=== PATIENT | male | born 1950 | race Hispanic/Latino ===

== ENCOUNTER 2021-12-17 11:33 | Emergency (ER) | payer MEDICARE, OTHER, SELFPAY ==
[2021-12-17 11:34] VITALS: BP 154/92; PULSE 61; RESP 16; TEMP 36.4; O2SAT 96; BMI 33.0
--- NOTE | 2021-12-17 12:01 | CT_ITS ---
STUDY: CT ABDOMEN AND PELVIS WITH CONTRAST REASON FOR EXAM: Male, 71 years old. Diffuse abdominal pain for 2 days. Constipation. RADIATION DOSAGE (If Supplied By Facility): CTDIvol = ( 16.33 ) mGy, DLP = ( 1158.62 ) mGycm TECHNIQUE: Transaxial images were obtained from the dome of the diaphragm to the symphysis pubis without oral contrast. IV 100mL Isovue-300 was administered. Sagittal and coronal images were reconstructed. Individualized dose optimization techniques were used for this CT. COMPARISON: None. FINDINGS: Mild increased linear markings at the lung bases more prominent on the right side suggestive of bibasilar atelectasis coronary artery calcification. There is decreased attenuation of the liver consistent with steatosis. Normal gallbladder and extrahepatic biliary system. Normal spleen. Normal pancreas. Normal bilateral adrenal glands. There is a 4.6 x 4.8 cm cyst in the upper pole of the right kidney. Mild degree of right hydronephrosis and right hydroureter due to a 3 mm calculus in the proximal portion of the right ureter. There is evidence of right perinephric stranding. Normal left kidney. Normal visualized stomach. Normal small intestine. Normal colon. The appendix is visualized and appears normal. Normal abdominal aorta. Normal inferior vena cava. Normal retroperitoneum. Diffuse bladder wall thickening although the bladder is not completely distended. Prostatic enlargement. The prostate measures 5.3 cm x 4.4 cm. Calcifications are seen within the prostate. There is a small umbilical hernia containing fat. Small left inguinal hernia containing fat. There are diffuse degenerative changes of the visualized lumbar spine. CT/Abdomen/Pelvis W IV Cont ONLY IMPRESSION: Mild degree of linear atelectasis at the lung bases. Diffuse fatty infiltration of the liver. Right renal cyst. Right hydronephrosis and proximal right hydroureter due to a 3 mm calculus in the proximal portion of the right ureter. Right perinephric stranding. Small umbilical hernia and left inguinal hernia. Prostatic enlargement with indentation of the bladder base. Diffuse bladder wall thickening. Electronically Signed: Isaac Warren MD at 13:38 EDT ,
--- NOTE | 2021-12-17 12:02 | ED.VIS.GI ---
HPI HPI - GI History of Present Illness Chief Complaint: Abd Pain Informant: patient Abdominal Pain/Flank Pain Onset: Days Context: Gradual Onset Timing: Intermittent Quality: Aching Current Severity: Mild Maximum Severity: Moderate Worsened by: Nothing Relieved by: Nothing Nausea/Vomiting/Emesis GI Symptom: Positive for Nausea Onset: Today Severity: Mild Diarrhea/Melena/Hematochezia GI Symptom: Negative for Diarrhea, Melena and Hematochezia Associated Symptoms Associated Symptoms: Negative for Dysuria, Frequency, Hematuria and Urgency Narrative Narrative: 71-year-old male history of kidney stones, diverticulosis and prior appendectomy. States he had abdominal pain develop yesterday. Right-sided. Now is diffuse. He stated initially when it occurred he took Naprosyn seem to improve he ate dinner last night and the pain worsened. Associated nausea no vomiting or diarrhea since then had a bowel movement since Tuesday. No melena. No fever or chills. No dysuria. No trouble urinating. No abdominal trauma. No fever. Prior similar symptoms: No Recent Illness/Hospitalization: No PFSH PFSH Home Medications oxycodone-acetaminophen [Percocet] 1 tab PO Q4H PRN 4 Days #14 tab 12/17/21 [Rx Last Taken Unknown] Allergy/AdvReac Type Severity Reaction Status Date / Time No Known Allergies Allergy Verified 12/17/21 11:34 Social History Smoking Status: Never smoker ROS ROS ED ROS Narrative Abdominal pain nausea. Review of Systems ROS Unobtainable: Denies due to encephalopathy Constitutional Constitutional ED: Denies fever(s) ENT ENT ED: Denies ear pain Cardiovascular Cardiovascular: Denies chest pain Respiratory/Chest Respiratory/Chest: Denies dyspnea Gastrointestinal Gastrointestinal: Reports abdominal pain, constipation and nausea; Denies diarrhea or vomiting Genitourinary Genitourinary ED: Denies dysuria Musculoskeletal Musculoskeletal: Denies myalgias Integumentary Denies rash Neurologic Neurologic: Denies headache(s) Psychiatric Psychiatric: Denies depression Endocrine Endocrinology: Denies polyuria Hematologic/Lymphatic Hematologic/Lymphatic: Denies easy bruising Allergic/Immunologic Allergic/Immunologic ED: Denies urticaria EXAM Physical Exam Narrative Exam Narrative: 71-year-old male no acute distress. Vital signs stable afebrile. H EENT exam unremarkable. Moist remembers. Lungs clear to auscultation. Heart regular rhythm no murmur. Abdomen soft diffusely tender no peritoneal signs. No pulsatile mass. No obstruction. No hernia. Follow-up normal bowel sounds. Mildly tender in all quadrants. No masses appreciated. Moving all 4 extremities. Nontender no edema. Back nontender. Neurologically is awake and alert. Const Vital Signs: 12/17/21 11:34 Temperature 97.6 F L Temperature Source Temporal Pulse Rate 61 Respiratory Rate 16 Blood Pressure 154/92 H Blood Pressure Mean 112 Pulse Ox 96 Oxygen Delivery Method Room Air Positive well nourished, well developed and obese; Negative for cachectic, contractures or unkempt General Appearance ED: well developed and NAD; Negative for unkempt, cachectic, contractures or pallor Nutritional Appearance: obese; Negative for cachectic HEENT Reports moist mucous membranes normocephalic and atraumatic Eyes PERRL and EOMs intact bilaterally General Eye ED: Negative for pale conjunctiva or scleral icterus Neck no lymphadenopathy, supple and no JVD General: Negative for tenderness Resp normal respiratory effort and clear to auscultation bilaterally Auscultation: Negative for rales, rhonchi or wheezes Cardio regular rate, regular rhythm, S1 normal heart sound, S2 normal heart sound and no murmurs GI non-distended and no masses; Negative for non-tender Auscultation: normoactive bowel sounds Palpation: soft and tender; Negative for guarding, rigid or rebound tenderness present Back/Spine no CVA tenderness General Back: Negative for CVA tenderness Cervical Spine: Negative for cervical spine tenderness Thoracic Spine / Upper Back: Negative for thoracic spinal tenderness Extremity full ROM General Extremety ED: Negative for edema or tenderness General Extremity: Negative for edema Neuro moves all extremities Sensorium / Orientation: alert, oriented to person, oriented to place and oriented to time; Negative for orientation impaired, confused, lethargic or stuporous Motor Exam: strength 5/5 throughout Psych mental status grossly normal and thought process normal Appearance: Negative for unkempt Attitude: No agitated Mood & Affect: Negative for depressed or tearful Skin no wounds General Skin Exam: Negative for jaundice or pallor Lesions: no lesions Rashes: no rashes MDM MDM MDM Narrative Medical decision making narrative: 71-year-old male with diffuse abdominal pain. CAT scan labs are pending. IV fluids, Zofran for nausea and morphine for pain. Differential would include gallbladder disease, pancreatitis, constipation, diverticulitis versus other etiologies. Repeat exam patient is doing well. He is pain-free after second dose of morphine. He and his are comfortable him being discharged home. We did discuss all his test results. He will follow up with his urologist as needed. Percocet for pain. Lab Data Attestation: I reviewed the patient's lab results. Lab results narrative: CBC shows a white count of 10. H&H 14 and 43. Electrolytes unremarkable gap of 5 BUN 21 creatinine 1.45. Liver enzymes are normal. Lipase is normal at 249. UA is negative. CAT scan consistent with a right proximal ureteral stone with hydronephrosis. No labs available for comparison. Labs: Laboratory Results - last 24 hr 12/17/21 12/17/21 12/17/21 12:10 12:10 13:08 WBC 10.1 RBC 4.73 Hgb 14.5 Hct 43.5 MCV 92.0 MCH 30.7 MCHC 33.3 RDW Std Deviation 47.6 H RDW Coeff of Nahed 13.9 Plt Count 181 MPV 9.4 Immature Gran % (Auto) 0.400 Neut % (Auto) 78.2 H Lymph % (Auto) 10.8 L [place] % (Auto) 10.3 H Eos % (Auto) 0.1 Baso % (Auto) 0.2 Absolute Neuts (auto) 7.9 H Absolute Lymphs (auto) 1.09 Nucleated RBC % 0 Sodium 140 Potassium 3.9 Chloride 108 H Carbon Dioxide 27.0 Anion Gap 5 BUN 21 H Creatinine 1.45 H Estim Creat Clear Calc 49.65 Est GFR (MDRD) Af Amer 62 Est GFR (MDRD) Non-Af 51 L BUN/Creatinine Ratio 14.5 Glucose 112 H Calcium 9.3 Total Bilirubin 0.60 AST 22 ALT 44 Alkaline Phosphatase 65 Total Protein 7.0 Albumin 3.9 Globulin 3.1 Albumin/Globulin Ratio 1.3 Lipase 249 Urine Color Yellow Urine Clarity Clear Urine pH 5.0 Ur Specific [place] 1.025 Urine Protein Negative Urine Glucose (UA) Normal Urine Ketones 5 H Urine Occult Blood Negative Urine Nitrite Negative Urine Bilirubin Negative Urine Urobilinogen Normal Ur Leukocyte Esterase Negative Urine RBC 0 SEEN Urine WBC 0 SEEN Ur Squamous Epith Cells 0 SEEN Urine Bacteria 0 SEEN Urine Mucus 0 SEEN Radiography Diagnostic Testing: Clinical Impression(s) from Imaging Studies Abdomen/Pelvis CT 12/17/21 12:01 IMPRESSION: Mild degree of linear atelectasis at the lung bases. Diffuse fatty infiltration of the liver. Right renal cyst. Right hydronephrosis and proximal right hydroureter due to a 3 mm calculus in the proximal portion of the right ureter. Right perinephric stranding. Small umbilical hernia and left inguinal hernia. Prostatic enlargement with indentation of the bladder base. Diffuse bladder wall thickening. Electronically Signed: Isaac Warren MD at 13:38 EDT , Discharge Plan Triage Chief Complaint: Abd Pain ED Provider: Zuhair Sanford Dx/Rx/DC Orders Clinical Impression: Kidney stone on right side, Abdominal pain Instructions: ED Kidney Stone w/ Colic Prescriptions: New oxycodone-acetaminophen [Percocet] 5-325 mg tablet 1 tab PO Q4H PRN (Reason: pain) 4 Days Qty: 14 RF: 0 Primary Care Provider: Shanti Milner Referrals: Ty Navarrete MD [STAFF PHYSICIAN] - As Needed Shanti Milner PA-C [Primary Care Provider] - As Needed Activity Restrictions/Additional Instructions: Plenty of fluids and rest. Percocet for pain as needed. Make sure you are taking plenty of fluids and fiber and even possibly a stool softener as needed because the Percocet may cause constipation. Strain your urine for past stone. Follow-up with your urologist if you are not improving. Return to the emergency department if fever or intractable vomiting or feeling a lot worse. Disposition Disposition: Home, Self Care
[2021-12-17] MEDS: 0.9% Normal Saline 1,000 ML 1000 ML IV (12:14)
[2021-12-17] MEDS: Ondansetron 4 MG/2 ML Vial IV (12:14)
[2021-12-17] MEDS: Morphine 4 MG/ML Syringe 6 MG IV (12:15)
[2021-12-17 12:33] LABS: Absolute Lymphocyte Count 1.09 X10^3/uL (0.83-4.51); Absolute Neutrophil Count 7.9 X10^3/uL (2.0-7.7); Basophil# 0.02 X10^3/uL; Basophil% 0.2 % (0-1); Eosinophil# 0.01 X10^3/uL; Eosinophils% 0.1 % (0-5); Hematocrit 43.5 % (40-54); Hemoglobin 14.5 g/dL (13.0-16.5); Lymphocyte # 1.09 X10^3/ul (0.83-4.51); Lymphocyte % 10.8 % (19-41); Mean Corp Hgb Conc 33.3 g/dL (32-36); Mean Corpuscular Hgb 30.7 pg (27.0-32.0); Mean Platelet Vol. 9.4 fl (6.2-12.0); Monocyte# 1.04 X10^3/uL; Monocyte% 10.3 % (0-10); NRBC Flagged by Analyzer 0 % (0-5); Neutrophil # 7.85 X10^3/uL (2.7-7.7); Neutrophil % 78.2 % (47-70); Platelet Count 181 K/mm3 (150-450); RBC Distribution Width CV 13.9 % (11.6-14.6); RBC Distribution Width SD 47.6 fl (35.1-43.9); Red Blood Count 4.73 M/mm3 (4.6-6.2); White Blood Count 10.1 K/mm3 (4.4-11.0)
[2021-12-17 12:56] LABS: ALB/GLOB Ratio 1.3 RATIO (0.9-2.4); AST(SGOT) 22 U/L (15-37); Alanine Aminotransfer ALT/SGPT 44 U/L (16-61); Albumin, Serum 3.9 g/dL (3.2-5.0); Alkaline Phosphatase 65 U/L (45-117); Anion Gap 5 (5-15); BUN 21 mg/dL (7-18); BUN/Creat Ratio 14.5 RATIO (10-20); Calcium,Total 9.3 mg/dL (8.5-10.1); Chloride 108 mmol/L (98-107); Creatinine, Serum 1.45 mg/dL (0.70-1.30); EST Glomerular Filtration Rate 51 mL/min (>60); Est Glom Filt Rate - Afr Amer 62 mL/min (>60); Estimated Creatinine Clearance 49.65 ml/min; Globulin 3.1 g/dL (2.2-4.2); Glucose 112 mg/dL (74-106); Lipase 249 U/L (73-393); Potassium 3.9 mmol/L (3.5-5.1); Sodium Level 140 mmol/L (136-145)
[2021-12-17 13:18] LABS: Bacteria 0 SEEN /hpf (None Seen); Mucous, Urine 0 SEEN /hpf (<or=2+); Red Blood Cells-Urine 0 SEEN /hpf (0-5); Squamous Epithelial Cells - UA 0 SEEN /hpf (0-5); White Blood Cells 0 SEEN /hpf (0-5)
[2021-12-17 13:21] LABS: Color, Urine Yellow (Yellow); Glucose, Dipstick Normal (Normal); Ketone-Dipstick 5 mg/dl (Negative); Leukocyte Esterase-Dipstick Negative /ul (Negative); Nitrite-Dipstick Negative (Negative); Occult Blood-Urine Negative /ul (Negative); Protein-Dipstick Negative (Negative); Specific Gravity, Urine 1.025 (1.002-1.030); Urine Bilirubin Dipstick Negative (Negative); Urine Clarity Clear (Clear); Urine Urobilinogen Normal (Normal)
[2021-12-17] MEDS: morphine 8 MG/ML Syringe 6 MG IV (13:31)
[2021-12-17 14:38] VITALS: BP 131/85; PULSE 60; RESP 18; O2SAT 95
== END 2021-12-17 14:38 | disposition home or self-care (01) ==
PROVIDERS: Emergency Provider Emergency Medicine; PCP Family Medicine; Visit Provider Emergency Medicine
DX: N20.0 Calculus of kidney (principal); R10.9 Unspecified abdominal pain; E66.9 Obesity, unspecified
CPT/HCPCS: 74177; 80053; 81001; 83690; 85025; 96361; 96374; 96375; 96376; 99284; Q9967; A4216; J2405

== ENCOUNTER 2021-12-22 16:45 | Observation (INO) | payer MEDICARE, OTHER, SELFPAY ==
--- NOTE | 2021-12-22 16:40 | HP.PCM_ITS ---
History and Physical NAVA VAIL .0 : 1950, 71 year old Male SSN: [id number] PRIMARY CARE: PARISH BEASLEY M.D. REFERRING: PARISH BEASLEY M.D. PROVIDER: Terrence Navarrete M.D. LOCATION: [facility] - [address] [place] [id number] CC/HPI: 71 yo male severe pain + nause and vomiting some chills, low grade fevers pain is not under control ALLERGIES: None MEDICATIONS: Allopurinol 100 mg tablet Proscar 5 mg tablet 1 tablet PO Daily Uroxatral 10 mg tablet, extended release 24 hr 1 tablet PO Q HS Notes: No COVID vaccine PAST SURGICAL HISTORY: Appendectomy Carpal Tunnel Surgery, Right Colonoscopy Knee Surgery (Unspecified) [facility] Notes: Kidney surgery, not specified PAST MEDICAL HISTORY: Benign prostatic hyperplasia with lower urinary tract symptoms - 11/02/2021, - 04/30/2021, - 10/02/2020 Elevated prostate specific antigen [PSA] - 11/02/2021, - 04/30/2021, - 10/02/2020, - 07/17/2020 Cyst of kidney, acquired - 10/02/2020 Unspecified abdominal pain - 09/01/2020 Epididymitis - 07/17/2020 Benign prostatic hyperplasia without lower urinary tract symptoms Dvtrcli of intest, part unsp, w/o perf or abscess w/o bleed Hyperuricemia w/o signs of inflam arthrit and tophaceous dis Obesity, unspecified Obstructive sleep apnea (adult) (pediatric) Personal history of urinary calculi Retention of urine, unspecified Unspecified hearing loss, unspecified ear Immunizations: None FAMILY HISTORY: Cancer - Mother, Sister SOCIAL HISTORY: Marital Status: Preferred Language: Pashto; Race: White Current Smoking Status: Patient does not smoke anymore. Tobacco Use Assessment Completed: Used Tobacco in last 30 days? Smoking cessation counseling was provided. Does not use smokeless tobacco. Social Drinker. Does not use drugs. Has not had a blood transfusion. REVIEW OF SYSTEMS: Constitutional: Patient reports fever and chills. Patient denies weight loss and weight gain. Genitourinary: Patient reports get up at night to void. Patient denies frequent urination, urinary retention, leakage of urine, painful urination, blood in the urine, frequent uti's, history of stones, difficulty starting stream, weak stream/scanty, and bedwetting. Notes: Updated from previous visit 11/02/2021 with review from patient as noted above. VITAL SIGNS: 12/22/2021 03:59 PM Weight 230 lb / 104.33 kg PHYSICAL EXAM: Constitutional: Well-nourished. No physical deformities. Normally developed. Good grooming. Neck: Neck symmetrical, not swollen. Normal tracheal position. Respiratory: No labored breathing, no use of accessory muscles. Cardiovascular: Normal temperature, normal extremity pulses, no swelling, no varicosities. Lymphatic: No enlargement of neck, axillae, groin. Skin: No paleness, no jaundice, no cyanosis. No lesion, no ulcer, no rash. Neurologic / Psychiatric: Oriented to time, oriented to place, oriented to person. No depression, no anxiety, no agitation. Gastrointestinal: No mass, no tenderness, no rigidity, non obese abdomen. Eyes: Normal conjunctivae. Normal eyelids. Ears, Nose, Mouth, and Throat: Left ear no scars, no lesions, no masses. Right ear no scars, no lesions, no masses. Nose no scars, no lesions, no masses. Normal hearing. Normal lips. Musculoskeletal: Normal gait and station of head and neck. Complexity of Data: Records Review: Previous Patient Records Urine Test Review: Urinalysis X-Ray Review: C.T. Abdomen/Pelvis: Reviewed Films. Reviewed Report. Discussed With Patient. 11/02/21 04/30/21 10/01/20 08/29/20 06/11/20 PSA Total PSA 10.77 8.87 7.78 9.87 6.8 PROCEDURES: Urinalysis - 42127 Dipstick Dipstick Cont'd Specimen: Voided Blood: about 250 Appearance: Clear pH: 5.0 Color: Yellow Protein: Neg Glucose: Normal Urobilinogen: Neg Bilirubin: Neg Nitrites: Neg Ketones: Neg Leukocyte Esterase: Neg ASSESSMENT: ICD-10 Details 1 Calculus of ureter - N20.1 Right, Undiagnosed New Problem PLAN: Document Letter(s): Created for Patient: Clinical Summary Notes: admit to hospital plan for intervention tomorrow with cysto stent possible laser. has obstructing kidney stone. Assessment & Plan Assessment/Plan (1) Kidney stone on right side:
[2021-12-22 17:41] VITALS: BMI 32.4
[2021-12-22 17:45] VITALS: BP 159/89; PULSE 51; RESP 16; TEMP 37.4; O2SAT 96
[2021-12-22] MEDS: Ondansetron 4 MG/2 ML Vial IV (18:11)
[2021-12-22] MEDS: Morphine 2 MG/ML Syringe IV ×2 (18:11→23:23)
[2021-12-22] MEDS: 0.9% Normal Saline 1,000 ML 100 ML IV (18:15)
[2021-12-22] MEDS: Cefazolin 1 GM/50 ML BAG IV (18:56)
[2021-12-22] MEDS: 0.9% Saline Lock 10 ML Syringe IV (18:56)
[2021-12-22] MEDS: Ketorolac 15 MG/ML Vial IV (18:57)
[2021-12-22] MEDS: Tamsulosin HCl 0.4 MG Capsule PO (21:09)
[2021-12-22 22:24] VITALS: PULSE 59
[2021-12-22 23:45] VITALS: BP 133/74; PULSE 59; RESP 16; TEMP 37.3; O2SAT 98
[2021-12-23] VITALS (10 sets, daily range): BP systolic 116–159; BP diastolic 75–97; PULSE 45–67; RESP 14–18; TEMP 36.2–38.1; O2SAT 95–98; BMI 32.4
[2021-12-23] MEDS: Ketorolac 15 MG/ML Vial IV (00:57)
[2021-12-23] MEDS: 0.9% Normal Saline 1,000 ML 100 ML IV (05:01)
[2021-12-23] MEDS: Cefazolin 1 GM/50 ML BAG IV (05:17)
[2021-12-23 05:25] LABS: Absolute Neutrophil Count 5.1 X10^3/uL (2.0-7.7); Basophil# 0.03 X10^3/uL; Basophil% 0.3 % (0-1); Eosinophil# 0.32 X10^3/uL; Eosinophils% 3.7 % (0-5); Hematocrit 42.8 % (40-54); Hemoglobin 14.9 g/dL (13.0-16.5); Lymphocyte % 23.3 % (19-41); Mean Corp Hgb Conc 34.8 g/dL (32-36); Mean Corpuscular Hgb 31.6 pg (27.0-32.0); Mean Corpuscular Volume 90.9 fL (80-94); Mean Platelet Vol. 9.1 fl (6.2-12.0); Monocyte# 1.16 X10^3/uL; Monocyte% 13.5 % (0-10); NRBC Flagged by Analyzer 0 % (0-5); Neutrophil # 5.06 X10^3/uL (2.7-7.7); Neutrophil % 58.9 % (47-70); Platelet Count 177 K/mm3 (150-450); RBC Distribution Width CV 13.5 % (11.6-14.6); RBC Distribution Width SD 45.2 fl (35.1-43.9); Red Blood Count 4.71 M/mm3 (4.6-6.2); White Blood Count 8.6 K/mm3 (4.4-11.0)
[2021-12-23 08:04] LABS: Anion Gap 2 (5-15); BUN 17 mg/dL (7-18); BUN/Creat Ratio 10.2 RATIO (10-20); Chloride 107 mmol/L (98-107); Creatinine, Serum 1.67 mg/dL (0.70-1.30); EST Glomerular Filtration Rate 44 mL/min (>60); Est Glom Filt Rate - Afr Amer 53 mL/min (>60); Estimated Creatinine Clearance 43.11 ml/min; Glucose 108 mg/dL (74-106); Potassium 4.4 mmol/L (3.5-5.1); Sodium Level 139 mmol/L (136-145)
--- NOTE | 2021-12-23 12:07 | CASEMGMT ---
JUAQUIN CM in to discuss PERDUE form with patient. RN CM explained PERDUE form, patient voiced understanding. Pt signed form and filed in chart. Pt provided with a copy of signed PERDUE form. Patient had no further questions or concerns at this time.
--- NOTE | 2021-12-23 12:31 | NURSING ---
pt transported off unit via bed at this time for surgery
--- NOTE | 2021-12-23 14:29 | PCM.DC ---
Discharge Instructions Diet Discharge Diet: No restrictions Activity Discharge Activity: Return to Normal Activity and May Not Drive (while taking narcotic pain medications.) Dressing / Incision Call your doctor if you observe: Fever of 101 or Higher Follow Up Care Please Follow Up With: Ty Navarrete MD When: Call [phone] for an appointment Test Results: Test results from this visit will be discussed in further detail at your follow-up appointment, if applicable. Discharge Plan Admission Admit Date/Time: 12/22/21 16:45 Attending Provider: Ty Navarrete Primary Care Provider: Shanti Milner Discharge Orders/Prescriptions Prescriptions: No Action allopurinol 100 mg tablet 100 mg PO DAILY RF: 0 alfuzosin 10 mg tablet extended release 24 hr 10 mg PO QHS RF: 0
--- NOTE | 2021-12-23 14:29 | PCM.OPRPT ---
Report of Operation Date of Procedure: 12/23/21 Pre-Operative Diagnosis: Right mid ureteral calculi with obstruction Post-Operative Diagnosis: Same Surgery/Procedure Performed:: Cystoscopy, right retrograde pyelogram, ureteroscopy laser lithotripsy of stone and right stent placement. Interpretation fluoroscopic images Description of Surgical Findings:: This is a patient who presents to the hospital for treatment for an obstructing distal ureter calculi. I discussed with the patient how the surgery would be performed and we reviewed the risks and benefits of the surgery. The risk and benefits include the risk of failure to remove the stone completely and that the patient may need multiple procedures. We discussed the risk of an infection, the risk of bleeding. We discussed the very rare risk of serious complicated injury to the ureter. The patient understands that if the stone is not able to be removed safely that we may abort the procedure and place a stent. After full discussion and all questions address with the patient the consent form was signed the side was marked appropriately and the patient was taken back to the operating room for the procedure. The patient was taken back to the operating room. After induction of anesthesia by the anesthesiology team the patient was placed in dorsolithotomy position. The genitals were prepped and draped in usual sterile fashion. I went into the bladder with a 21 Occitan rigid cystourethroscope through the urethra. Upon entering the bladder I inspected the trigone the left and right ureteral orifice and the bladder itself. I then cannulated the Right ureteral orifice and advanced a 0.038 Glidewire up into the kidney. Then over the Glidewire I advanced a 5 Fr Ureteral catheter and performed a retrograde pyelogram with about 10cc of contrast, to delineate the anatomy and identify the stone location. I then placed a second 0.038 Guidewire as a working wire and over the working 0.038 guidewire I went in with a Flexible 7.9fr ureteroscope. I was able to go inside with the 7.9Fr flexible utereroscope and I pulled out the working guidewire and then through the 7.9 fr flexible ureteroscope I ascended up the ureter with direct visualization until the stone was located the proximal ureter and pushed back in the upper pole calyx and trapped, then I engaged the stone with laser lithotripsy using a 270miron laser fiber with energy setting of 6 Hertz and 0.6 J until the stone was lasered into tiny little pieces that should pass on their own. After successful laser lithotripsy of the stone and stone fragments, a retrograde pyelogram was performed with 10cc of contrast and no extravasation of contrast or perforation was identified in the ureter. I then backed out of the ureter left the wire in place and then over the 0.038 guidewire I placed a double coiled pigtail ureteral stent. The ureteral stent was advanced over the 0.038 guidewire under direct fluoroscopic guidance and direct cystoscopic visual guidance, once the stent was in good position I pulled the wire and the stent coiled in the kidney and bladder in good position. I then drained the patient's bladder and the cystoscope was removed and the patient was taken back to the recovery room in good position. The patient was given discharge instructions to call the office for instructions on when to come to the office to have the stent removed. Surgeon: teetee Type of Anesthesia: General Drains: stent Admit VTE Documentation VTE Present on Admission: No VTE Mechan Device Prophylaxis: SCD's VTE Pharm Prophylaxis ordered?: No
[2021-12-23] MEDS: Ondansetron 4 MG/2 ML Vial IV (17:09)
== END 2021-12-23 19:25 | disposition home or self-care (01) ==
PROVIDERS: Anesthesiology; Admitting Provider Urology; PCP Family Medicine; Visit Provider Urology
PROC: (CPT 50575; principal; 2021-12-23 13:50)
DX: N20.1 Calculus of ureter (principal); Z87.891 Personal history of nicotine dependence; G47.33 Obstructive sleep apnea (adult) (pediatric); E66.9 Obesity, unspecified; Z68.32 Body mass index [BMI] 32.0-32.9, adult; Z79.899 Other long term (current) drug therapy; N40.1 Benign prostatic hyperplasia with lower urinary tract symptoms; R33.8 Other retention of urine; N13.8 Other obstructive and reflux uropathy
CPT/HCPCS: 52356; 00918; 36415; 76000; 80048; 85025; 87426; 96361; 96365; 96366; 96375; 96376; 97802; 99218; J7030; A4216; C1769; C2617; G0378; J2405

== ENCOUNTER 2021-12-31 16:21 | Outpatient (CLI) | payer MEDICARE, OTHER, SELFPAY | END 2021-12-31 23:59 | disposition home or self-care (01) | PROVIDERS: PCP Family Medicine; Visit Provider Urology | DX: N20.1 Calculus of ureter (principal) | CPT/HCPCS: 82360 ==

== ENCOUNTER → 2025-07-08 | Outpatient (CLI) | payer MEDICARE, OTHER, SELFPAY ==
--- NOTE | 2025-07-08 13:50 | MRI_ITS ---
PROCEDURE: PELVIS W/WO CONTRAST, 07/08/2025 REASON FOR EXAM: ELEVATED PSA TECHNIQUE: Multisequence multiplanar MRI pelvis was performed with and without IV contrast. IV Contrast: 20 mL Clariscan COMPARISON: None FINDINGS: Prostate size: 5.5 x 4.8 x 4.9 cm, estimated volume 67.3 mL, exclusive of fairly considerable gross extracapsular extension as described below. Transition zone: Possible involvement of the LEFT posterior and anterior transition zone far base by the below lesion. Otherwise, there are PI-RADS 2 findings. Peripheral Zone: Background changes of likely prostatitis (PI-RADS 2). Additional nodular T2 hypointense signal demonstrating marked restricted diffusion and early/contemporaneous enhancement, difficult to discretely measure on a single image, with intra prostatic elements up to 3.2 cm in the axial plane in centered within the LEFT posterior peripheral zone extending from base to apex, up to 3.8 cm in the axial plane inclusive of areas of large volume gross extracapsular extension (for example, series 12 image 10, 13, 20, and 22). Suspect involvement of the LEFT anterior and posterior transition zone far base as above. Extracapsular extension: Suspect early involvement of the base of the bilateral seminal vesicles, with restricted diffusion and early/contemporaneous enhancement in these areas. Broad-based capsular abutment with capsular abutment well over 1 cm and considerable gross extracapsular extension extends along the LEFT posteromedial bladder wall, in addition to capsular bulging suggestive of extracapsular extension into the region of the LEFT neurovascular bundle, involvement therefore cannot be excluded. Additionally, broad-based area abutment of the anterior rectum without gross invasion although early/microscopic involvement similarly cannot be excluded. Overall PI-RADS: PI-RADS 5 Neurovascular bundles: As above. Seminal vesicles: As above. Bladder: As above. Otherwise, underdistended and suboptimally evaluated. Appearance suggests chronic bladder outlet obstruction.. Lymph nodes: Bulky [id number] external iliac/pelvic sidewall lymphadenopathy, with nodes up to 29 mm short axis and 28 mm short axis, respectively. Distal LEFT common iliac node, 25 mm short axis. More proximal LEFT common iliac node, 18 mm short axis. Unable to evaluate para-aortic dwayne basins as these are above the field of view. RIGHT common iliac node, 13 mm short axis. Bones: Scattered enhancing bony lesions highly suspicious for osseous metastatic disease in the sacrum, LEFT iliac bone, and LEFT femoral neck, largest 18 mm in the LEFT iliac bone. Other: Diverticulosis.. MRI/Pelvis W/WO Contrast IMPRESSION: 1. Large locally advanced PI-RADS 5 lesion probably arising from and involving the majority of the LEFT posterior peripheral zone difficult to discretely measure on a single axial image up to at least 3.8 cm i n the axial plane. Possible involvement of LEFT transition zone base. 2. Fairly considerable gross extracapsular extension with extension along the L EFT posterolateral bladder neck as well as suspected early involvement of the bases of the bilateral seminal vesicles. Ad ditionally, broad-based capsular abutment well over 1 cm including areas of capsular bulging protruding into the LEFT neurovas cular bundle with early involvement not excluded. Similar findings along the anterior rectum, without gross invasion although ear ly/microscopic involvement is again difficult to exclude. 3. Bulky bilateral pelvic lymphadenopathy as described extending at least into the bilateral common iliac chains highly suspicious for dwayne metastasis. Would consider CT abdomen and pelvis and poss ibly chest to evaluate more proximal at least retroperitoneal dwayne basins which are above the field of view on this exam. 4. Findings suspicious for osseous metastatic disease with scattered bony lesio ns up to 18 mm in the LEFT iliac bone. Consider bone scan to evaluate for more distant/extrapelvic osseous metastasis. 5. Additional description as above. Reading Location: [id number]
== END | disposition home or self-care (01) ==
PROVIDERS: PCP Family Medicine; Referring Provider Urology; Visit Provider Urology
DX: R97.20 Elevated prostate specific antigen [PSA] (principal)
CPT/HCPCS: 72197; A9575; A4216

== ENCOUNTER 2025-07-30 16:49 | Emergency (ER) | payer MEDICARE, OTHER, SELFPAY ==
[2025-07-30 16:50] VITALS: BP 144/83; PULSE 50; RESP 18; TEMP 37.1; O2SAT 99; BMI 31.4
--- NOTE | 2025-07-30 17:32 | CT_ITS ---
PROCEDURE: CT/Abdomen/Pelvis without Cont
--- NOTE | 2025-07-30 17:33 | EX.ED.DYSGE1 ---
HPI History of Present Illness Chief Complaint: Flank Pain Informant: patient and spouse/S.O. Narrative Narrative: 74-year-old male presenting to the emergency room with the chief complaint of left-sided abdominal pain. Patient recently started on Augmentin for diverticulitis and is on day 2. He states he also has a history of uric acid who is on allopurinol. Several years ago he had a kidney stone. Yesterday while doing bent over dumbbell rows he felt a pain on the left side of his abdomen. States that pain seems to have wax and wane. He noticed some crystals in his urine. Denies any fevers. He does note some associated nausea when the pain gets worse. PFSH [facility] Medical History Cystic meniscus, other medial meniscus, right knee Kidney stones Diverticulosis GI bleed CPAP (continuous positive airway pressure) dependence Sleep apnea Home Medications ?Medication ?Instructions ?Recorded ?Last Taken ?Type alfuzosin 10 mg tablet,extended 10 mg PO QHS 12/22/21 07/29/25 History release 24 hr allopurinol 100 mg tablet 100 mg PO DAILY gout 12/22/21 07/30/25 History ciprofloxacin HCl 500 mg tablet 500 mg PO BID #10 tabs 12/23/21 07/30/25 Rx (Cipro) ondansetron 4 mg disintegrating 4 mg PO Q6H PRN PRN Nausea #15 tabs 07/30/25 Unknown Rx tablet oxycodone-acetaminophen 5 mg-325 1 tab PO Q6H PRN pain 3 days #12 07/30/25 Unknown Rx mg tablet (Percocet) tabs tamsulosin 0.4 mg capsule 0.4 mg PO QHS #7 CAPSULES 07/30/25 Unknown Rx Allergy/AdvReac Type Severity Reaction Status Date / Time No Known Allergies Allergy Verified 07/30/25 16:49 Surgical History H/O carpal tunnel repair History of appendectomy Social History Smoking Status: Never smoker ROS ROS ED Constitutional Constitutional ED: Denies chills, fever(s) or weight loss Eyes Eyes: Denies change in vision or diplopia ENT ENT ED: Denies ear pain, rhinorrhea or sore throat Cardiovascular Cardiovascular: Denies chest pain, orthopnea, palpitations or racing heartbeat Respiratory/Chest Respiratory/Chest: Denies cough, dyspnea or orthopnea Gastrointestinal Gastrointestinal: Reports abdominal pain and constipation; Denies diarrhea, nausea or vomiting Genitourinary Genitourinary ED: Reports urinary frequency; Denies dysuria or hematuria Musculoskeletal Musculoskeletal: Denies arthralgias or myalgias Integumentary Denies abscess or rash Neurologic Neurologic: Denies headache(s) or weakness Psychiatric Psychiatric: Denies anxiety, depression, suicidal ideation or suicidal thoughts Endocrine Endocrinology: Denies polydipsia, polyphagia or polyuria Allergic/Immunologic Allergic/Immunologic ED: Denies mouth swelling, tongue swelling or urticaria EXAM Physical Exam Const Vital Signs: 07/30/25 16:50 07/30/25 19:06 07/30/25 20:00 Temperature 98.8 F 98.2 F Temperature Source Oral Oral Pulse Rate 50 L 64 72 Respiratory Rate 18 18 14 Blood Pressure 144/83 H 130/82 H 107/66 Blood Pressure Mean 103 98 79 Pulse Ox 99 99 98 Oxygen Delivery Method Room Air Room Air Room Air 07/30/25 20:16 Temperature 98.3 F Temperature Source Pulse Rate 60 Respiratory Rate 18 Blood Pressure 120/81 H Blood Pressure Mean 94 Pulse Ox 99 Oxygen Delivery Method Positive well nourished and well developed General Appearance ED: well developed and NAD HEENT Reports normocephalic, head/scalp atraumatic and moist mucous membranes Eyes PERRL and EOMs intact bilaterally Neck no lymphadenopathy, supple and no JVD Resp normal respiratory effort and clear to auscultation bilaterally Cardio regular rate, regular rhythm and no murmurs GI Inspection: Negative for abdominal distention Auscultation: normoactive bowel sounds Palpation: soft and tender LLQ; Negative for guarding or rebound tenderness present Back/Spine no CVA tenderness and normal ROM Extremity normal to inspection General Extremety ED: Negative for edema General Extremity: Negative for edema Neuro oriented x3 and CN's II-XII intact bilaterally Sensorium / Orientation: alert Motor Exam: strength 5/5 throughout Psych mental status grossly normal Mood & Affect: Negative for depressed or tearful Skin no rashes or lesions noted and no wounds MDM MDM MDM Narrative Medical decision making narrative: Differential diagnosis includes but not limited to UTI diverticulitis colitis perforation abscess kidney stone pyelonephritis Patient's white count returned to 7.9 hemoglobin 13.4 platelet count of 202. Creatinine is 1.14 urinalysis demonstrates 10-25 red blood cells no overt infection. CT of the pelvis was obtained read by radiology reviewed by myself. This demonstrates a stone in the bladder as well as the left distal ureter with hydronephroureter. Patient received pain nausea and IV fluids. I spoke with the patient and his regarding the above findings. I will write for pain medication at home. He would like to try some Flomax but he is also on alfuzosin and I advised him to not take both. He does see Dr. Navarrete in the past for urology and he may follow-up there return if worsening or concerns History & Record Review Discussion w/independent historian: Patient and Family Additional record(s) reviewed:: Prior ED visit Lab Data Attestation: I reviewed the patient's lab results. Labs: Laboratory Results - last 24 hr 07/30/25 07/30/25 17:02 17:07 WBC 7.9 RBC 4.38 L Hgb 13.4 Hct 40.0 MCV 91.3 MCH 30.6 MCHC 33.5 RDW Std Deviation 46.6 H RDW Coeff of Nahed 13.7 Plt Count 202 MPV 9.6 Immature Gran % (Auto) 0.400 Neut % (Auto) 72.8 H Lymph % (Auto) 16.8 L [place] % (Auto) 7.7 Eos % (Auto) 1.9 Baso % (Auto) 0.4 Absolute Neuts (auto) 5.8 Absolute Lymphs (auto) 1.33 Nucleated RBC % 0 Sodium 138 Potassium 4.2 Chloride 102 Carbon Dioxide 23.7 Anion Gap 12 BUN 23 H Creatinine 1.14 Estim Creat Clear Calc 69.19 Est GFR (MDRD) Non-Af 68 BUN/Creatinine Ratio 19.9 Glucose 115 H Calcium 9.5 Urine Color Yellow Urine Clarity Clear Urine pH 5.0 Ur Specific [place] 1.025 Urine Protein 30 H Urine Glucose (UA) Normal Urine Ketones 15 H Urine Occult Blood 250 H Urine Nitrite Negative Urine Bilirubin Negative Urine Urobilinogen Normal Ur Leukocyte Esterase Negative Urine RBC 10-25 SEEN Urine WBC 0-5 SEEN Ur Squamous Epith Cells 0 SEEN Urine Bacteria RARE Urine Mucus RARE Radiography Diagnostic Testing: Clinical Impression(s) from Imaging Studies Abdomen/Pelvis CT 07/30/25 17:32 IMPRESSION: [id number] left hydroureteronephrosis secondary to a 4 mm distal ureteral calculus and an additional 5 mm calculus within the posterior left urinary bladder near the ureterovesicular junction. Bilateral renal calculi, largest on the left measuring 1.2 cm. Enlarged prostate with internal calcifications. Enlarged retroperitoneal and bilateral iliac lymph nodes, largest measuring 2.5 cm; correlation with elevated PSA and consideration of further evaluation with contrast-enhanced CT or MRI prostate recommended. Mild layering density in the gallbladder lumen, possibly representing sludge. Reading Location: [facility] Discharge Plan Triage Chief Complaint: Flank Pain ED Provider: Sameer Nicole Dx/Rx/DC Orders Clinical Impression: Kidney stone on left side, Abdominal pain Instructions: ED Kidney Stone with Pain Prescriptions: New oxycodone-acetaminophen [Percocet] 5-325 mg tablet 1 tab PO Q6H PRN (Reason: pain) 3 Days Qty: 12 0RF ondansetron 4 mg tablet,disintegrating 4 mg PO Q6H PRN PRN (Reason: Nausea) Qty: 15 0RF tamsulosin 0.4 mg capsule 0.4 mg PO QHS Qty: 7 0RF No Action allopurinol 100 mg tablet 100 mg PO DAILY Patient Comments: TAKE 1 TABLET BY MOUTH ONCE DAILY alfuzosin 10 mg tablet extended release 24 hr 10 mg PO QHS ciprofloxacin HCl [Cipro] 500 mg tablet 500 mg PO BID Qty: 10 0RF Primary Care Provider: Shanti Milner Referrals: Ty Navarrete MD [Med Staff - Active Staff, Urology] - As soon as possible Shanti Milner PAJuneC [Primary Care Provider, Medical] Activity Restrictions/Additional Instructions: Do not take the tamsulosin (Flomax) and the alfuzosin in the same day. They can have additive effects and lower your blood pressure and cause you to pass out. If you are feeling worse or having uncontrolled pain please return to emergency. Please schedule follow-up appointment with your urologist. Print Language: [place]i Disposition Disposition: Home, Self Care Discharge Date/Time: 07/30/25 20:18
[2025-07-30 17:42] LABS: Squamous Epithelial Cells - UA 0 SEEN /hpf (0-5)
[2025-07-30] MEDS: 0.9% Normal Saline (1000mL) 1,000 ML 250 ML IV (17:42)
[2025-07-30] MEDS: Ketorolac 30 MG/ML Syringe IV (17:42)
[2025-07-30 17:51] LABS: Hematocrit 40.0 % (40-54); Hemoglobin 13.4 g/dL (13.0-16.5); Immature Granulocytes Count 0.030 X10^3/uL (0.0-0.0); Mean Corp Hgb Conc 33.5 g/dL (32-36); Mean Corpuscular Volume 91.3 fL (80-94); Mean Platelet Vol. 9.6 fl (6.2-12.0); NRBC Flagged by Analyzer 0 % (0-5); Platelet Count 202 K/mm3 (150-450); RBC Distribution Width CV 13.7 % (11.6-14.6); RBC Distribution Width SD 46.6 fl (35.1-43.9); Red Blood Count 4.38 M/mm3 (4.6-6.2); White Blood Count 7.9 K/mm3 (4.4-11.0)
[2025-07-30 17:57] LABS: Color, Urine Yellow (Yellow); Glucose, Dipstick Normal (Normal); Ketone-Dipstick 15 mg/dl (Negative); Leukocyte Esterase-Dipstick Negative /ul (Negative); Nitrite-Dipstick Negative (Negative); Occult Blood-Urine 250 /ul (Negative); Protein-Dipstick 30 mg/dl (Negative); Specific Gravity, Urine 1.025 (1.002-1.030); Urine Bilirubin Dipstick Negative (Negative)
[2025-07-30 18:07] LABS: Mucous, Urine RARE /hpf (<or=2+); Red Blood Cells-Urine 10-25 SEEN /hpf (0-5)
[2025-07-30 18:30] LABS: Anion Gap 12 (5-15); BUN 23 mg/dL (4-19); BUN/Creat Ratio 19.9 RATIO (10-20); Calcium,Total 9.5 mg/dL (7.6-11.0); Carbon Dioxide 23.7 mmol/L (21.0-32.0); Chloride 102 mmol/L (98-108); Estimated Creatinine Clearance 69.19 ml/min (50-250); Glucose 115 mg/dL (70-99); Potassium 4.2 mmol/L (3.3-5.1)
[2025-07-30 19:06] VITALS: BP 130/82; PULSE 64; RESP 18; TEMP 36.8; O2SAT 99
[2025-07-30 20:00] VITALS: BP 107/66; PULSE 72; RESP 14; O2SAT 98
[2025-07-30 20:16] VITALS: BP 120/81; PULSE 60; RESP 18; TEMP 36.8; O2SAT 99
== END 2025-07-30 20:18 | disposition home or self-care (01) ==
PROVIDERS: Emergency Provider Emergency Medicine; PCP Family Medicine; Visit Provider Emergency Medicine
DX: N20.2 Calculus of kidney with calculus of ureter (principal); K57.92 Diverticulitis of intestine, part unspecified, without perforation or abscess without bleeding; Z79.899 Other long term (current) drug therapy; N13.30 Unspecified hydronephrosis
CPT/HCPCS: 74176; 80048; 81001; 85025; 96361; 96374; 96375; 99282; A4216; J2405

== ENCOUNTER 2025-08-13 07:59 | Outpatient (CLI) | payer MEDICARE, OTHER, SELFPAY ==
--- NOTE | 2025-08-13 08:00 | PET_ITS ---
PROCEDURE: PET/CT TUMOR BASE -THIGH INIT 08/13/2025 REASON FOR EXAM: 75 y/o M with PYLARIFY. TECHNIQUE: Procedure Code: PETPTCTINIT Modality: PT Procedure: PET/CT TUMOR BASE -THIGH INIT Following the intravenous administration of radionucleotide, image acquisition on a dedicated PET/CT unit was performed at one hour post injection. A preliminary CT study encompassing the Head, neck, chest, abdomen, pelvis, and proximal thighs was performed for purposes of attenuation correction and anatomic localization. The proximal thighs were also included. RADIOPHARMACEUTICAL: 8.9 mCi Pylarify (Piflufolastat F18) - Prostate Specific Membrane Agent - IV was injected into he patient. RADIATION DOSE SUMMARY: Effective Dose: Approximately 7 mSv for a standard whole-body PET scan Organ Doses: Varies by organ, with higher doses typically to the bladder, liver, and brain COMPARISON: COMPARISON FROM CT, PET OR OTHER PERTINENT EXAMS: Abdomen and pelvis CT of 07/30/2020. FINDINGS: Physiologic uptake: There may be expected metabolic uptake within the brain, tongue and floor of the mouth and larynx/vocal cords, heart, zuleika (many normal individuals have hilar uptake in less than 3 nodes with mildly avid hilar nodes less than 2.7 SUV), liver and spleen, system, and GI tract and symmetric muscle uptake. FDG AVID AND NON-AVID LESIONS. Reported avid SUV values (g/mL*) are maximum SUV. NECK: There are no significant neck abnormalities. CHEST: Chest wall- There are no significant chest wall abnormalities. Axilla- There are no significant axillary abnormalities. Lung parenchyma- There are no significant lung parenchyma abnormalities. Mediastinum- There are no significant hilar or mediastinal adenopathy. Pleura- There are no significant pleural abnormalities. ABDOMEN: Stomach- No significant abnormalities. Liver- No significant abnormalities. Spleen- No significant abnormalities. Pancrease- No significant abnormalities. Kidneys- Small bilateral nonobstructive renal calculi are seen, [id number]. Bowel- Normal bowel activity. Spine- No significant abnormalities. PELVIS: Extensive areas of predominantly central to left hypermetabolic prostate activity, extending beyond the margins of the prostate gland in multiple locations. Very extensive hypermetabolic involvement innumerable retroperitoneal lymph nodes, bilaterally, and extensive bilateral iliac lymph nodes ([id number]), as well, consistent with malignant adenopathy. Small fat containing left inguinal hernia. Bowel- Normal physiologic bowel activity is identified. Bones- Very extensive osseous axial and appendicular metastatic disease is seen, involving bilateral ribs, spine (most prominent at the T6 vertebra), bilateral scapula, sternum, sacrum, bilateral pelvis, and bilateral proximal femora. PET/PET/CT Tumor Base -Thigh Init IMPRESSION: FDG avid- 1. Extensive areas of hypermetabolic prostate uptake, extending beyond the roger ins of the prostate gland as noted on the left posterior aspects, consistent with malignancy. 2. Very extensive hypermetabolic adenopathy is seen at the retroperitoneum and bilateral iliac chains. 3. Very extensive axial and appendicular metastatic disease. Other: 1. Small bilateral nonobstructive renal calculi are seen, [id number] [id number]. 2. Small fat containing left inguinal hernia. 3. Small bilateral nonobstructive renal calculi, [id number]-right. Please note the low-dose CT scan was performed to facilitate PET image reconstr uction and anatomic localization and does not replace a diagnostic CT. Any diagnostic CT requested and performed at the time of the PET will be reported separately. Reading Location: [place] [id number]
== END 2025-08-13 23:59 | disposition home or self-care (01) ==
PROVIDERS: PCP Family Medicine; Referring Provider Urology; Visit Provider Urology
DX: C61 Malignant neoplasm of prostate (principal); C79.51 Secondary malignant neoplasm of bone
CPT/HCPCS: 78815; A9595